=== PATIENT | male | born 1970 | race Caucasian/White ===

== ENCOUNTER → 2025-01-20 | Outpatient (CLI) | payer SELFPAY, OTHER ==
--- NOTE | 2025-01-20 10:30 | MRI_ITS ---
PROCEDURE: SPINE CERVICAL (ROUTINE) 01/20/2025 REASON FOR EXAM: Clinical history of cervical disc degeneration. TECHNIQUE: Procedure Code: MRISP Modality: MR Procedure: SPINE CERVICAL (ROUTINE) Multiplanar and multisequence images were obtained without IV contrast administration. COMPARISON: None available. FINDINGS: The visualized posterior fossa contents appear within normal limits. The normal cervical lordosis is maintained. The atlantooccipital and atlantoaxial joints appear normally aligned. The cervical vertebral bodies are normal in height. The cervical vertebral bodies are normal in alignment. Multilevel disc desiccation. Small Schmorl's node at the superior endplate of C7 vertebral body where there is a perifocal rim of bone marrow edema. The cervical bone marrow signal is otherwise within normal limits. There is no evidence of cervical spinal cord signal abnormality. C2-C3: No significant spinal canal stenosis or neural foraminal narrowing. C3-C4: Right paracentral disc osteophyte complex formation, bilateral facet arthrosis, and uncovertebral spurring. Indentation of the ventral thecal sac. Mild bilateral neural foraminal narrowing. C4-C5: No disc herniation. Bilateral facet arthrosis and uncovertebral spurring contributes to mild right neural foraminal narrowing. No significant left neural foraminal narrowing. C5-C6: Central disc protrusion, bilateral facet arthrosis, and uncovertebral spurring contribute to mild spinal canal stenosis. Mild bilateral neural foraminal narrowing. C6-C7: Central disc protrusion, bilateral facet arthrosis, and uncovertebral spurring. Mild spinal canal stenosis. Mild bilateral neural foraminal narrowing. C7-T1: No significant spinal canal stenosis or neural foraminal narrowing. MRI/Spine Cervical (Routine) IMPRESSION: 1. Acute small Schmorl's node at superior endplate of C7 vertebral body. 2. Cervical spondylosis without high-grade spinal canal or neural foraminal amara nosis. Reading Location: [id number]
== END | disposition home or self-care (01) ==
LOC: MRI 10:08
PROVIDERS: PCP Family Medicine; Referring Provider Orthopaedic Surgery Orthopaedic Surgery of the Spine; Visit Provider Orthopaedic Surgery Orthopaedic Surgery of the Spine
DX: M50.320 Other cervical disc degeneration, mid-cervical region, unspecified level (principal); M43.12 Spondylolisthesis, cervical region
CPT/HCPCS: 72141